=== PATIENT | male | born 1965 | race Caucasian/White ===

== ENCOUNTER 2021-11-13 17:31 | Inpatient (IN) | payer OTHER ==
[~2021-11-13] VITALS: Ht 167.6 cm; Wt 74.8 kg
[~2021-11-13 17:31] MED LIST: CYCL10 PO; ESOM20 PO; GEMF600 PO; HYDACE5 PO; LEVSOD125 PO; LISI10 PO; LISI5 PO; METF500 PO; NAPR500 PO; NAPR550 PO; OMEP20ER
[2021-11-13] MEDS ORDERED: GABA300 PO (18:01)
[2021-11-13 18:18] LABS: BASOPHILS PERCENT AUTO 1 % (0-2); EOSINOPHILS ABSOLUTE AUTO 0.42 K/mm3 (0.00-0.68); EOSINOPHILS PERCENT AUTO 4 % (0-6); Hematocrit 48.4 % (37.0-53.0); Hemoglobin 17.1 g/dL (13.5-17.5); IMMATURE GRAN ABSOLUTE AUTO 0.03 K/mm3 (0.00-0.10); IMMATURE GRAN PERCENT AUTO 0 % (0-1); LYMPHOCYTES ABSOLUTE AUTO 4.45 K/mm3 (0.84-5.20); LYMPHOCYTES PERCENT AUTO 46 % (21-46); MONOCYTES ABSOLUTE AUTO 0.71 K/mm3 (0.16-1.47); MONOCYTES PERCENT AUTO 7 % (4-13); Mean Corpuscular HGB 30.1 pg (26.0-34.0); Mean Corpuscular HGB Conc 35.3 g/dL (31.5-36.5); Mean Corpuscular Volume 85 fL (80-100); Mean Platelet Volume 9.6 fL (9.1-12.4); NEUTROPHILS ABSOLUTE AUTO 3.96 K/mm3 (1.96-9.15); NEUTROPHILS PERCENT AUTO 41 % (41-73); Platelet Count 376 K/mm3 (150-400); RDW Coefficient Variation 12.2 % (11.7-14.2); RDW Standard Deviation 37.9 fL (35.1-46.3); Red Blood Cell Count 5.69 M/mm3 (4.30-5.90); White Blood Cell Count 9.67 K/mm3 (4.00-11.30)
[2021-11-13 18:30] LABS: Alanine Aminotransfer (ALT/SGP 32 U/L (12-78); Albumin, Blood 4.1 g/dL (3.4-5.0); Alk Phos 123 U/L (50-136); Anion Gap 7 mmol/L (6-16); Aspartate Aminotrans (AST/SGOT 15 U/L (12-37); Bilirubin, Total 0.3 mg/dL (0.1-1.0); Blood Urea Nitrogen 12 mg/dL (8-24); Bun/Creatinine Ratio 15.7 (12.0-20.0); CO2, Blood 28 mmol/L (21-32); Calcium, Blood 9.1 mg/dL (8.5-10.1); Chloride, Blood 100 mmol/L (98-108); Creatinine, Blood 0.76 mg/dL (0.60-1.20); Glomerular Filtration Rate >60 (60-); Glucose, Blood 211 mg/dL (70-99); Potassium, Blood 3.7 mmol/L (3.5-5.5); Sodium, Blood 135 mmol/L (136-145); Total Protein, Blood 8.1 g/dL (6.4-8.2)
[2021-11-14 00:27] LABS: Source, Urine Clean Catch
[2021-11-14 00:29] LABS: Bilirubin, Urine Neg (Neg); Blood, Urine Neg (Neg); Glucose Qualitative, Urine 3+ (Neg); Ketones, Urine 1+ (Neg); Leukocyte Esterase, Urine 1+ (Neg); Nitrite, Urine Neg (Neg); Protein, Urine 2+ (Neg); Urobilinogen, Urine 2+ (Normal)
[2021-11-14 01:10] LABS: Appearance, Urine Clear (Clear); Color, Urine Yellow (P-Yellow)
[2021-11-14 01:14] LABS: Bacteria Rare /hpf; Red Blood Cells, Urine 0-2 /hpf (0-2); Squamous Epithelial Cells Rare /hpf (Few); White Blood Cells, Urine 0-2 /hpf (0-5)
--- NOTE | 2021-11-14 01:17 | NUR ---
ADMISSION: PT ARRIVED TO [facility] VIA GURNEY, BUT WAS STEADY ON HIS FEET TRANSFERRING TO BED. THE PT'S C/O WERE NUMBNESS TO LEFT-SIDE FACE, HAND, ARM, AND LEG. HE DID SAY THERE WAS SOME NUMBNESS/TINGLING TO RT FINGERS. HIS NIH WAS LOW IN THE ED AND TPA WAS NOT RECOMMENDED. HEAD CT SHOWED POSSIBLE PRIOR STROKE. PT RECEIVED 325 ASA IN ED; ONCE ON FLOOR PLAVIX, LOVENOX, & LIPITOR WERE ADMINISTERED. ON ASSESSMENT NO FACIAL DROOP, EXTREMITY WEAKNESS, OR DYSPHAGIA WAS NOTED. VSS AND PT TOLERATED PO INTAKE WELL. PT REMAINS ON RA, TELE PER MONITOR WAS SR/91. CALL LIGHT IS WITHIN REACH AND WE'LL CONTINUE TO MONITOR.
[2021-11-14 05:04] LABS: BASOPHILS ABSOLUTE AUTO 0.09 K/mm3 (0.00-0.23); BASOPHILS PERCENT AUTO 1 % (0-2); EOSINOPHILS ABSOLUTE AUTO 0.45 K/mm3 (0.00-0.68); EOSINOPHILS PERCENT AUTO 6 % (0-6); Hematocrit 43.5 % (37.0-53.0); IMMATURE GRAN ABSOLUTE AUTO 0.03 K/mm3 (0.00-0.10); IMMATURE GRAN PERCENT AUTO 0 % (0-1); LYMPHOCYTES ABSOLUTE AUTO 4.13 K/mm3 (0.84-5.20); LYMPHOCYTES PERCENT AUTO 51 % (21-46); MONOCYTES ABSOLUTE AUTO 0.66 K/mm3 (0.16-1.47); MONOCYTES PERCENT AUTO 8 % (4-13); Mean Corpuscular HGB 29.4 pg (26.0-34.0); Mean Corpuscular HGB Conc 34.5 g/dL (31.5-36.5); Mean Corpuscular Volume 85 fL (80-100); Mean Platelet Volume 9.7 fL (9.1-12.4); NEUTROPHILS PERCENT AUTO 34 % (41-73); Platelet Count 323 K/mm3 (150-400); RDW Coefficient Variation 12.2 % (11.7-14.2); RDW Standard Deviation 38.3 fL (35.1-46.3); White Blood Cell Count 8.16 K/mm3 (4.00-11.30)
--- NOTE | 2021-11-14 05:29 | NUR ---
SHIFT SUMMARY: PT IS A/OX4. HE DOES HAVE C/O OF LEFT-SIDED WEAKNESS, ALTHOUGH HE IS STEADY ON HIS FEET. HIS WEAKNESS IS TO HIS LEFT FACE, ARM, HAND, AND DOWN HIS LEG, BUT NO DROOP, DRIFTING, OR WEAKNESS WERE NOTED UPON ASSESSMENT. HE IS ON RA, TELE PER MONITOR WAS SR/91. VSS. HIS CALL LIGHT IS WITHIN REACH AND WE'LL CONTINUE TO MONITOR.
[2021-11-14 05:37] LABS: Alanine Aminotransfer (ALT/SGP 26 U/L (12-78); Albumin, Blood 3.3 g/dL (3.4-5.0); Alk Phos 96 U/L (50-136); Anion Gap 7 mmol/L (6-16); Aspartate Aminotrans (AST/SGOT 14 U/L (12-37); Bilirubin, Total 0.4 mg/dL (0.1-1.0); Blood Urea Nitrogen 14 mg/dL (8-24); Bun/Creatinine Ratio 16.2 (12.0-20.0); CO2, Blood 30 mmol/L (21-32); Calcium, Blood 8.6 mg/dL (8.5-10.1); Chloride, Blood 99 mmol/L (98-108); Creatinine, Blood 0.87 mg/dL (0.60-1.20); Globulin, Blood 3.3 g/dL (2.2-4.0); Glomerular Filtration Rate >60 (60-); Glucose, Blood 260 mg/dL (70-99); Potassium, Blood 4.2 mmol/L (3.5-5.5); Sodium, Blood 136 mmol/L (136-145); Total Protein, Blood 6.6 g/dL (6.4-8.2)
--- NOTE | 2021-11-14 18:01 | NUR ---
SHIFT SUMMARY PATIENT DENIES PAIN, NAUSEA, AND SHORTNESS OF BREATH. PATIENT IS INDEPENDENT IN ROOM. PT WORKED WITH PATIENT TODAY. SUPERVISION FOR AMBULATING IN HALLWAY. PATIENT HAD ECHO COMPLETED THIS SHIFT. PATIENT REPORTS LESS NUMBESS TO FACE. PATIENT IS EATING AND DRINKING WELL. PATIENT IS PLEASANT AND COOPERATIVE WITH CARE.
--- NOTE | 2021-11-15 04:05 | NUR ---
SHIFT SUMMARY: THE PT IS A/OX4. HE HAS BEEN STEADY ON HIS FEET AND INDEPENDENT IN THE ROOM. THE PT HAS NOT HAD ANY C/O OF ANY NEW DEFICITS EXCEPT THE CONTINUING FACIAL NUMBNESS ON HIS LEFT SIDE. THE ARE NO OTHER ACUTE CHANGES TO REPORT.
[2021-11-15 04:51] LABS: Hemoglobin 15.7 g/dL (13.5-17.5); Mean Corpuscular HGB 29.8 pg (26.0-34.0); Mean Corpuscular HGB Conc 34.9 g/dL (31.5-36.5); Mean Corpuscular Volume 86 fL (80-100); Mean Platelet Volume 9.5 fL (9.1-12.4); Platelet Count 324 K/mm3 (150-400); RDW Coefficient Variation 12.1 % (11.7-14.2); RDW Standard Deviation 37.6 fL (35.1-46.3); Red Blood Cell Count 5.26 M/mm3 (4.30-5.90); White Blood Cell Count 7.14 K/mm3 (4.00-11.30)
[2021-11-15 05:14] LABS: Alanine Aminotransfer (ALT/SGP 26 U/L (12-78); Albumin, Blood 3.4 g/dL (3.4-5.0); Alk Phos 80 U/L (50-136); Anion Gap 7 mmol/L (6-16); Aspartate Aminotrans (AST/SGOT 13 U/L (12-37); Bilirubin, Total 0.6 mg/dL (0.1-1.0); Blood Urea Nitrogen 16 mg/dL (8-24); CHOL/HDL RATIO 6.5; CO2, Blood 25 mmol/L (21-32); Calcium, Blood 8.6 mg/dL (8.5-10.1); Chloride, Blood 105 mmol/L (98-108); Cholesterol 183 mg/dL (50-200); Creatinine, Blood 0.73 mg/dL (0.60-1.20); Globulin, Blood 3.5 g/dL (2.2-4.0); Glomerular Filtration Rate >60 (60-); Glucose, Blood 179 mg/dL (70-99); HDL Cholesterol 28 mg/dL (>39); LDL/HDL RATIO Unable to Calculate; Low Density Lipoprotein Chol Unable to Calculate mg/dL (0-110); Potassium, Blood 4.1 mmol/L (3.5-5.5); Sodium, Blood 137 mmol/L (136-145); Total Protein, Blood 6.9 g/dL (6.4-8.2); Triglycerides 407 mg/dL (30-160); Very Low Density Lipoprot Chol Unable to Calculate mg/dL (6-32)
[2021-11-15] MEDS ORDERED: ASPI81CH PO (11:41)
[2021-11-15] MEDS ORDERED: CLOP75 PO (11:42)
[2021-11-15] MEDS ORDERED: GLIP2.5ER PO (11:42)
[2021-11-15] MEDS ORDERED: ATOR80 PO (11:42)
[2021-11-15] MEDS ORDERED: FAMO40 PO (11:44)
--- NOTE | 2021-11-15 12:53 | NUR ---
DISCHARGE PATIENT TRANSPORTED VIA WHEELCHAIR TO PRIVATE VEHICLE. DISCHARGE INSTRUCTIONS EXPLAINED TO PATIENT. PATIENT STATED UNDERSTANDING. PACKET SENT WITH PATIENT. IV REMOVED WITHOUT DIFFICULTY. TELE REMOVED WITHOUT DIFFICULTY. BELONGINGS SENT WITH PATIENT. MEDICATIONS FAXED TO PREFERRED PHARMACY. FOLLOW UP WITH PCP SCHEDULED.
== END 2021-11-15 12:53 | disposition home or self-care (01) | DRG 57 ==
LOC: ER 17:31 → MEDS 17:32
PROVIDERS: Internal Medicine; Physician Assistant; ADMIT Internal Medicine
DX: I69.398 Other sequelae of cerebral infarction (principal); Z23 Encounter for immunization; I10 Essential (primary) hypertension; E78.00 Pure hypercholesterolemia, unspecified; E03.9 Hypothyroidism, unspecified; R20.2 Paresthesia of skin; R20.0 Anesthesia of skin; E11.40 Type 2 diabetes mellitus with diabetic neuropathy, unspecified; E78.5 Hyperlipidemia, unspecified; K21.9 Gastro-esophageal reflux disease without esophagitis; Z90.49 Acquired absence of other specified parts of digestive tract; Z79.84 Long term (current) use of oral hypoglycemic drugs; Z79.899 Other long term (current) drug therapy
CPT/HCPCS: 36415; 70450; 70496; 70498; 80053; 80061; 81001; 82947; 83036; 83090; 85025; 85027; 87086; 90686; 93005; 93010; 93306; 93880; 96372; 97162; 97530; 99285-25; A9270; G0008; G0378; J1650; Q9967

== ENCOUNTER 2022-12-26 11:55 | Day surgery (SDC) | payer OTHER ==
[~2022-12-26] VITALS: Ht 167.6 cm; Wt 77.9 kg
[~2022-12-26 11:55] MED LIST changes: +ASPI81CH PO; +ATOR80 PO; +CLOP75 PO; +FAMO40 PO; +GABA300 PO; +GLIP2.5ER PO
--- NOTE | 2022-12-26 13:55 | NUR ---
[facility]22 [facility] DR CLEMONS CANCELLED CASE D/T H1AC OF 12.2 AND CURRENT BLOOD SUGAR OF 287. DR CLEMONS STATES HE WILL REACH OUT TO PCP ABOUT GETTING BLOOD SUGAR MORE UNDER CONTROL AND SURGERY WILL BE RESCHEDULED. PATIENT VERBALIZED UNDERSTANDING. IV REMOVED, BELONGINGS RETURNED, AND SBA TO CAR. PATIENT DISCHARGED AT 1345.
== END 2022-12-26 13:45 | disposition home or self-care (01) ==
LOC: ORSCSDS 11:55
DX: G56.02 Carpal tunnel syndrome, left upper limb (principal); G56.22 Lesion of ulnar nerve, left upper limb; E11.9 Type 2 diabetes mellitus without complications; Z53.9 Procedure and treatment not carried out, unspecified reason
CPT/HCPCS: 82947; J0690; J2250; J2704; J2795; J3010; J7120

== ENCOUNTER 2023-10-28 08:47 | Day surgery (SDC) | payer OTHER ==
[~2023-10-28] VITALS: Ht 167.6 cm; Wt 82.9 kg
[~2023-10-28 08:47] MED LIST changes: -ASPI81CH PO; +ASPIR 8181 M1; +BUSP5 PO; +CYMBALTA60 M1 PO; -LEVSOD125 PO; -LISI5 PO; +MULTI-VITAMIN1 EAC2 PO; +PANTOPRAZOLE SO40 M2; +SYNTHROID175 MC1 PO; +ZESTRIL40 M1 PO
[2023-10-28 11:20] VITALS: BP 106/74
== END 2023-10-28 11:23 | disposition home or self-care (01) ==
LOC: ORSCSDS 08:47
PROVIDERS: Specialist
PROC: 0DB68ZX Excision of Stomach, Via Natural or Artificial Opening Endoscopic, Diagnostic (ICD-10-PCS; principal; 2023-10-28 10:00)
PROC: 0DBH8ZX Excision of Cecum, Via Natural or Artificial Opening Endoscopic, Diagnostic (ICD-10-PCS; principal; 2023-10-28 10:00)
PROC: 0DB58ZX Excision of Esophagus, Via Natural or Artificial Opening Endoscopic, Diagnostic (ICD-10-PCS; principal; 2023-10-28 10:00)
DX: K21.9 Gastro-esophageal reflux disease without esophagitis (principal); K22.70 Barrett's esophagus without dysplasia; Z12.11 Encounter for screening for malignant neoplasm of colon; D12.0 Benign neoplasm of cecum; K64.8 Other hemorrhoids; K44.9 Diaphragmatic hernia without obstruction or gangrene; K64.4 Residual hemorrhoidal skin tags; K31.89 Other diseases of stomach and duodenum; E11.9 Type 2 diabetes mellitus without complications; G47.33 Obstructive sleep apnea (adult) (pediatric); Z79.82 Long term (current) use of aspirin; Z79.899 Other long term (current) drug therapy
CPT/HCPCS: 82947; 88305; 88342; J2704; J7120